=== PATIENT | male | born 1980 | race Caucasian/White ===

== ENCOUNTER 2022-07-23 09:33 | Outpatient (CLI) | payer OTHER, SELFPAY ==
[2022-07-23 10:41] LABS: Liquefaction Semen Complete in 30 min. (<30 minutes); Semen Color Opaque (Grey-opaque); Semen Immotility 0 %; Semen Non-Progressive Motility 0 %; Semen Progressive Motility 0 % (>32); Semen Viscosity Increased (Not Increa.); Volume Semen 3 mL (1.5-5.0)
[2022-07-23 10:42] LABS: Semen Morphology Result to Follow; Semen Total Motility 0 (>40% (PM+NP)); Sperm Count 0 Mil/mL (60-150 million/mL)
[2022-07-29 17:59] LABS: Fructose, Semen 352 mg/dL (150-600)
== END 2022-07-23 09:34 | disposition home or self-care (01) ==
LOC: CHSLAB 09:40
DX: Z31.0 Encounter for reversal of previous sterilization (principal)
CPT/HCPCS: 82757; 88160; 89320

== ENCOUNTER 2023-01-18 08:49 | Outpatient (CLI) | payer OTHER, SELFPAY ==
[2023-01-18 11:18] LABS: Liquefaction Semen Complete in 30 min. (<30 minutes); Semen Color Opaque (Grey-opaque); Semen Viscosity Not Increased (Not Increa.)
[2023-01-18 11:19] LABS: Semen Immotility 30 %; Semen Morphology Result to Follow; Semen Non-Progressive Motility 20 %; Semen Progressive Motility 50 % (>32); Semen Total Motility 70 (>40% (PM+NP)); Sperm Count 3.9 Mil/mL (60-150 million/mL)
[2023-01-25 22:22] LABS: Fructose, Semen 414 mg/dL (150-600)
== END 2023-01-18 08:50 | disposition home or self-care (01) ==
LOC: CHSLAB 08:53
DX: Z31.0 Encounter for reversal of previous sterilization (principal)
CPT/HCPCS: 82757; 88160; 89320